=== PATIENT | female | born 1950 | race Caucasian/White ===

== ENCOUNTER 2019-10-06 10:31 | Emergency (ER) | payer MEDICARE, OTHER ==
--- NOTE | 2019-10-06 11:07 | ERPHSYRPT ---
- History of Present Illness Time Seen by Provider: 10/06/19 11:03 Source: patient Exam Limitations: no limitations Patient Subjective Stated Complaint: Rectal pain/hemmoroids Triage Nursing Assessment: Patient ambulated back to ED and transferred self to bed. Patient A+O X3. Patient's skin pink, warm and dry. Patient complains of rectal bleeding. Patient states she was seen on Tuesday for hemorroids and was given a script for them. Patient has large hemmoroid bleeding from rectum. Patient states her pain is intermittent aching 08/06. Physician History: 69-year-old female with significant past medical history of hypertension recently seen as an outpatient by nurse practitioner for rectal hemorrhage. She was diagnosed with external hemorrhoid and was started on Anusol suppository. But her bleeding started again today and she saw lots of blood in her toilet up so she got little bit scared and came to the emergency room. There was no active bleeding in the emergency room. She denies any other symptoms. Timing/Duration: today Associated Symptoms: denies symptoms Allergies/Adverse Reactions: No Known Drug Allergies Allergy (Verified 10/06/19 10:42) Home Medications: Citalopram Hydrobromide 20 mg* [ceLEXa 20 MG] 20 mg PO DAILY 05/24/16 [ History] Lisinopril/Hydrochlorothiazide [Lisinopril-Hctz 10-12.5 mg Tab] 1 each PO DAILY 05/24/16 [History] Lovastatin 20 mg PO DAILY 05/24/16 [History] Metformin HCl 1000 mg [Glucophage 1000 MG] 500 mg PO BID 05/24/16 [History] Aspirin 1 tab PO DAILY 10/06/19 [History] Hx Influenza Vaccination/Date Given: No Hx Pneumococcal Vaccination/Date Given: No Immunizations Up to Date: Yes Travel Risk - International Travel Have you traveled outside of the country in past 3 weeks: No Have you or anyone close to you been diagnosed with or: No Do your reside in a community with a known COVID-19 case?: Yes If Yes where:: [facility] - Coronavirus Screening Has patient experienced Coronavirus symptoms: No - Review of Systems Constitutional: No Symptoms Eyes: No Symptoms Ears, Nose, & Throat: No Symptoms Respiratory: No Symptoms Cardiac: No Symptoms Abdominal/Gastrointestinal: Hematochezia Genitourinary Symptoms: No Symptoms Musculoskeletal: No Symptoms - Past Medical History Pertinent Past Medical History: Yes Neurological History: No Pertinent History ENT History: Cataracts Cardiac History: High Cholesterol, Hypertension Respiratory History: Sleep Apnea Endocrine Medical History: Diabetes Type II Musculoskeletal History: No Pertinent History GI Medical History: No Pertinent History History: No Pertinent History Psycho-Social History: Anxiety Female Reproductive Disorders: Uterine Cancer - Past Surgical History Past Surgical History: Yes Neuro Surgical History: No Pertinent History Cardiac: No Pertinent History Respiratory: No Pertinent History Gastrointestinal: Appendectomy Genitourinary: No Pertinent History Musculoskeletal: No Pertinent History Female Surgical History: Hysterectomy - Social History Smoking Status: Never smoker Exposure to second hand smoke: No Drug Use: none Patient Lives Alone: Yes - Female History Hx Last Menstrual Period: hysterectomy Hx Now: No - Nursing Vital Signs Nursing Vital Signs: Initial Vital Signs Temperature 98.0 F 10/06/19 10:45 Pulse Rate 71 10/06/19 10:45 Respiratory Rate 18 10/06/19 10:45 Blood Pressure 152/108 10/06/19 10:45 O2 Sat by Pulse Oximetry 97 10/06/19 10:45 Pain Scale Pain Intensity 3 - Physical Exam General Appearance: no apparent distress Eye Exam: PERRL/EOMI Ears, Nose, Throat Exam: normal ENT inspection Neck Exam: normal inspection Respiratory Exam: normal breath sounds Cardiovascular Exam: regular rate/rhythm Gastrointestinal/Abdomen Exam: other (Prolapsed hemorrhoid at 11 oclock position with formed blood clot) SpO2: 97 - Course Nursing assessment & vital signs reviewed: Yes - Progress Progress: improved Counseled pt/family regarding: diagnosis, need for follow-up - Departure Departure Disposition: Home Clinical Impression: Hemorrhoid prolapse Condition: Stable Critical Care Time: No Instructions: Hemorrhoids (DC), How to Do a Sitz Bath Additional Instructions: Discharge/Care Plan MEETA PADGETT was seen on 10/06/19 in the Emergency Room. The patient was counseled regarding Diagnosis,Lab results, Imaging studies, need for follow up and when to return to the Emergency Room. Prescriptions given: Discharge Note I have spoken with the patient and/or caregivers. I have explained the patient' s condition, diagnosis and treatment plan based on the information available to me at this time. I have answered the patient's and/or caregiver's questions and addressed any concerns. The patient and/or caregivers have as good understanding of the patient's diagnosis, condition and treatment plan as can be expected at this point. The vital signs have been stable. The patient's condition is stable and appropriate for discharge from the emergency department. The patient will pursue further outpatient evaluation with the primary care physician or other designated or consulting physician as outlined in the discharge instructions. The patient and/or caregivers are agreeable to this plan of care and follow-up instructions have been explained in detail. The patient and/or caregivers have received these instruction. The patient/and or caregivers are aware that any significant change in condition or worsening of symptoms should prompt an immediate return to this or the closest emergency department or call 911. Continue anusol suppositories, follow up with your primary care physician for further surgical referral.
[2019-10-06 11:44] VITALS: BP 161/114; PULSE 66; O2SAT 98
== END 2019-10-06 11:24 | disposition home or self-care (01) ==
LOC: ED 10:31
DX: K64.8 Other hemorrhoids (principal); I10 Essential (primary) hypertension; E78.00 Pure hypercholesterolemia, unspecified; E11.9 Type 2 diabetes mellitus without complications; F41.9 Anxiety disorder, unspecified; Z85.42 Personal history of malignant neoplasm of other parts of uterus; Z79.4 Long term (current) use of insulin; Z79.899 Other long term (current) drug therapy
CPT/HCPCS: 99283

== ENCOUNTER 2019-11-01 09:57 | Day surgery (SDC) | payer MEDICARE, OTHER ==
--- NOTE | 2019-10-29 15:11 | HP ---
DATE OF SURGERY: 11/01/2019 HISTORY OF PRESENT ILLNESS: The patient is a 69 year-old female that presented to the office with complaints of hemorrhoids. The patient states one has pushed out and has not been bleeding. It did bleed rarely on occasion but it is not bleeding right now. There is some irritation. This has been out for about three weeks. She states that it is not too painful. She does have a soft stool every day. She denies any prior hemorrhoid surgery or banding. PAST MEDICAL HISTORY: Diabetes. Anxiety. Hypertension. Hyperlipidemia. Uterine cancer. PAST SURGICAL HISTORY: Partial hysterectomy. Appendectomy. MEDICATIONS: Benazepril, Metformin, lovastatin, citalopram. ALLERGIES: NKDA. FAMILY HISTORY: Diabetes, heart disease. SOCIAL HISTORY: Negative. REVIEW OF SYSTEMS: CONSTITUTIONAL: She denies fever or chills. CHEST: No shortness of breath or cough. CVS: Denies chest pain. ABDOMEN: Denies abdominal pain, nausea, vomiting, diarrhea. Reports rectal bleeding and prolapsed hemorrhoid. : Denies dysuria or hematuria. EXTREMITIES: Denies swelling. PHYSICAL EXAMINATION: GENERAL: No acute distress. HEENT: No jaundice. Oral mucosa moist. NECK: No JVD. CHEST: Nonlabored. No shortness of breath. ABDOMEN: Soft, nondistended, nontender to palpation. EXTREMITIES: No edema. RECTAL: Prolapsed external hemorrhoid x1. There are two internal hemorrhoids. INTEGUMENTARY: Warm, pink, no rash. NEUROLOGIC: Awake, alert, oriented. PSYCHIATRIC: Appropriate mood and affect. ASSESSMENT: Prolapsed hemorrhoid x1, two internal hemorrhoids. PLAN: Hemorrhoidectomy with Dr. Kale Lunsford. As dictated by Marcella Hernandez NP.
[~2019-11-01 09:57] MED LIST: MEFOXIN 2 GM PREMIX** 2 GM/50 ML ML IV ONE
[2019-11-01] MEDS ORDERED: EXPAREL 266 MG/20 ML VIAL IJ ONE (09:58)
[2019-11-01] MEDS ORDERED: MEFOXIN 2 GM PREMIX** 2 GM/50 ML ML IV SCH (10:00)
[2019-11-01] MEDS ORDERED: Lactated Ringers 1,000 ML IV SCH (10:00)
[2019-11-01] MEDS ORDERED: DIPRIVAN 200 MG/20 ML IV ONE (12:12)
[2019-11-01] MEDS ORDERED: Xylocaine-Mpf 2% 5 Ml Vial ONE (12:12)
[2019-11-01] MEDS ORDERED: SUBLIMAZE 100 MCG/2 ML ONE ×2 (12:12→13:16)
[2019-11-01] MEDS ORDERED: Versed 2 MG/2 ML Injection ONE (12:13)
[2019-11-01] MEDS ORDERED: Quelicin Fliptop 200 MG/10 ML ONE (13:22)
[2019-11-01] MEDS ORDERED: DUONEB 0.5-3 MG/3 ml Neb IH ONE ×2 (13:51→13:52)
[2019-11-01 15:23] VITALS: BP 152/97; PULSE 74; O2SAT 94
--- NOTE | 2019-11-02 10:59 | OP ---
SURGERY DATE/TIME: 11/01/2019 1257 PREOPERATIVE DIAGNOSIS: Severe hemorrhoids. POSTOPERATIVE DIAGNOSIS: Severe thrombosed hemorrhoids. PROCEDURE: Complex hemorrhoidectomy with surgical resection of three hemorrhoidal columns including both internal and external hemorrhoids. SURGEON: Kale Lunsford M.D. ANESTHESIA: General. COMPLICATIONS: None. CONDITION: Stable. INDICATION: The patient has symptomatic hemorrhoids. Several of these are thrombosed. DESCRIPTION OF PROCEDURE: She was taken to surgery. General anesthetic. Routine prep and drape. Anus was fairly petite from the get go and it was elected to proceed with three quadrant hemorrhoidectomy 5, 7 and 11. There was a little bit of 1 to 2 but this was left, this was just not that bad and her anus was small. Base suture 0 chromic. Mucosa was scored. Hemorrhoidal tissue was clamped and secured with 2-0 chromic and the base suture run out to the skin. The patient tolerated the procedure satisfactory and allowed one and a fingers at the termination of the procedure.
== END 2019-11-01 15:35 | disposition home or self-care (01) ==
LOC: SDC 09:57
PROVIDERS: ATTEND Surgery
DX: K64.5 Perianal venous thrombosis (principal); E11.9 Type 2 diabetes mellitus without complications; I10 Essential (primary) hypertension; E78.5 Hyperlipidemia, unspecified; Z79.899 Other long term (current) drug therapy
CPT/HCPCS: 82962; 88304; 94640; J0330; J0694; J2250; J2704; J3010; A9270-GY